=== PATIENT | male | born 1985 | race American Indian/Alaskan Native ===

== ENCOUNTER 2019-09-19 09:33 | Emergency (ER) | payer SELFPAY ==
[2019-09-19] MEDS ORDERED: KETOROLAC 30 MG/1 ML INJ IV ONE (11:41)
[2019-09-19] MEDS ORDERED: SODIUM CHLORIDE 0.9% 1000 ML 2,000 ML IV ONE (11:41)
[2019-09-19] MEDS ORDERED: ONDANSETRON 4 MG/2 ML INJ IV ONE (11:41)
[2019-09-19 11:44] LABS: Basophils # (Auto) 0.1 K/mm3 (0.0-0.1); Basophils % (Auto) 0.8 % (0.0-1.8); Eosinophils # (Auto) 0.1 K/mm3 (0.0-0.4); Eosinophils % (Auto) 0.7 % (0.0-4.3); Hematocrit 54.8 % (35.5-45.6); Hemoglobin 17.9 gm/dl (11.8-15.2); Lymphocytes # (Auto) 3.8 K/mm3 (1.2-5.4); Lymphocytes % (Auto) 34.2 % (13.4-35.0); Mean Corpuscular HGB Conc 33 % (32-34); Mean Corpuscular Volume 82 fl (84-94); Monocytes # (Auto) 1.1 K/mm3 (0.0-0.8); Monocytes % (Auto) 10.4 % (0.0-7.3); Platelet Count 414 K/mm3 (140-440); Red Blood Count 6.65 M/mm3 (3.65-5.03); Red Cell Distribution Width 14.2 % (13.2-15.2)
--- NOTE | 2019-09-19 11:50 | Emergency Department Report ---
- General Chief Complaint: Upper Respiratory Infection Stated Complaint: BLOOD IN URINE Time Seen by Provider: 09/19/19 11:33 Source: patient Mode of arrival: Ambulatory Limitations: No Limitations - History of Present Illness Initial Comments: This 34-year-old male presents to [facility] prompt chief complaint of generalized body aches, fever, chills, malaise, cough, dizziness and dark colored urine for the past 3 days. Patient reports his aches are a 8 out of 10 in severity. He denies any known past medical history, current medication use or known allergies to medications. Medications are up to date but he did not get a flu shot this year. Reports his pain is aggravated with movement and there are no alleviating factors. He is unsure of any sick contacts. - Related Data Previous Rx's Medication Instructions Recorded Last Taken Type Ibuprofen [Motrin 800 MG tab] 800 mg PO Q8HR PRN #30 tablet 09/19/19 Unknown Rx Ondansetron [Zofran Odt] 4 mg PO Q8HR PRN #30 tab.rapdis 09/19/19 Unknown Rx Allergies Allergy/AdvReac Type Severity Reaction Status Date / Time No Known Allergies Allergy Unverified 09/19/19 09:34 ED Review of Systems ROS: Stated complaint: BLOOD IN URINE Other details as noted in HPI Comment: All other systems reviewed and negative Constitutional: see HPI, chills, fever, malaise Eyes: denies: eye pain, eye discharge, vision change ENT: denies: ear pain, throat pain Respiratory: see HPI, cough. denies: shortness of breath, wheezing Cardiovascular: denies: chest pain, palpitations Endocrine: no symptoms reported Gastrointestinal: denies: abdominal pain, nausea, diarrhea Genitourinary: denies: urgency, dysuria Musculoskeletal: as per HPI, myalgia. denies: back pain, joint swelling, arthralgia Skin: denies: rash, lesions Neurological: denies: headache, weakness, paresthesias Psychiatric: denies: anxiety, depression Hematological/Lymphatic: denies: easy bleeding, easy bruising ED Past Medical Hx - Past Medical History Previous Medical History?: No - Surgical History Past Surgical History?: No - Social History Smoking Status: Current Every Day Smoker Substance Use Type: None - Medications Home Medications: Home Medications Medication Instructions Recorded Confirmed Last Taken Type Ibuprofen [Motrin 800 MG tab] 800 mg PO Q8HR PRN #30 tablet 09/19/19 Unknown Rx Ondansetron [Zofran Odt] 4 mg PO Q8HR PRN #30 tab.rapdis 09/19/19 Unknown Rx ED Physical Exam - General Limitations: No Limitations General appearance: alert, in no apparent distress - Head Head exam: Present: atraumatic, normocephalic - Eye Eye exam: Present: normal appearance, PERRL, EOMI Pupils: Present: normal accommodation - ENT ENT exam: Present: normal exam, normal orophraynx, mucous membranes moist, TM's normal bilaterally - Neck Neck exam: Present: normal inspection, full ROM. Absent: tenderness, meningismus - Respiratory Respiratory exam: Present: normal lung sounds bilaterally. Absent: respiratory distress, wheezes, rales, rhonchi, stridor - Cardiovascular Cardiovascular Exam: Present: regular rate, normal rhythm, normal heart sounds. Absent: systolic murmur, diastolic murmur, rubs, gallop - GI/Abdominal GI/Abdominal exam: Present: soft, normal bowel sounds. Absent: distended, tenderness, guarding, rebound, rigid - Rectal Rectal exam: Present: deferred - Extremities Exam Extremities exam: Present: normal inspection, full ROM, normal capillary refill. Absent: tenderness, calf tenderness (negative Homans sign bilaterally) - Back Exam Back exam: Present: normal inspection, full ROM. Absent: tenderness, CVA tenderness (R), CVA tenderness (L) - Neurological Exam Neurological exam: Present: alert, oriented X3, normal gait - Psychiatric Psychiatric exam: Present: normal affect, normal mood - Skin Skin exam: Present: warm, dry, intact, normal color. Absent: rash ED Course Vital Signs 09/19/19 09/19/19 09/19/19 09:37 10:53 12:04 Temperature 98.1 F Pulse Rate 131 H 149 H Respiratory 18 18 Rate Blood Pressure 139/93 Blood Pressure 135/112 [Left] O2 Sat by Pulse 98 98 Oximetry 09/19/19 09/19/19 09/19/19 13:09 13:36 13:46 Temperature Pulse Rate 99 H 93 H Respiratory 19 30 H 28 H Rate Blood Pressure 116/81 Blood Pressure [Left] O2 Sat by Pulse Oximetry 09/19/19 09/19/19 09/19/19 14:00 14:16 14:30 Temperature Pulse Rate 100 H 99 H 104 H Respiratory 14 20 24 Rate Blood Pressure 123/74 139/82 132/94 Blood Pressure [Left] O2 Sat by Pulse Oximetry 09/19/19 09/19/19 09/19/19 14:46 15:24 15:30 Temperature Pulse Rate 96 H 87 85 Respiratory 18 25 H 20 Rate Blood Pressure 138/84 146/86 146/92 Blood Pressure [Left] O2 Sat by Pulse Oximetry 09/19/19 09/19/19 15:45 16:00 Temperature Pulse Rate 86 89 Respiratory 15 22 Rate Blood Pressure 133/85 121/85 Blood Pressure [Left] O2 Sat by Pulse Oximetry ED Medical Decision Making - Lab Data Result diagrams: 09/19/19 11:17 09/19/19 13:02 Lab Results 09/19/19 09/19/19 09/19/19 Range/Units 10:29 11:17 11:17 WBC 11.0 (4.5-11.0) K/mm3 RBC 6.65 H (3.65-5.03) M/mm3 Hgb 17.9 H (11.8-15.2) gm/dl Hct 54.8 H (35.5-45.6) % MCV 82 L (84-94) fl MCH 27 L (28-32) pg MCHC 33 (32-34) % RDW 14.2 (13.2-15.2) % Plt Count 414 (140-440) K/mm3 Lymph % (Auto) 34.2 (13.4-35.0) % [place] % (Auto) 10.4 H (0.0-7.3) % Eos % (Auto) 0.7 (0.0-4.3) % Baso % (Auto) 0.8 (0.0-1.8) % Lymph # 3.8 (1.2-5.4) K/mm3 [place] # 1.1 H (0.0-0.8) K/mm3 Eos # 0.1 (0.0-0.4) K/mm3 Baso # 0.1 (0.0-0.1) K/mm3 Seg Neutrophils % 53.9 (40.0-70.0) % Seg Neutrophils # 5.9 (1.8-7.7) K/mm3 ABG pH (7.350-7.450) pH Units ABG pCO2 mm Hg ABG pO2 (80.0-90.0) mm Hg ABG HCO3 (20.0-26.0) mmol/L ABG O2 Saturation (95.0-99.0) % ABG O2 Content (0.0-44) ABG Base Excess (-2.0-3.0) mmol/L ABG Hemoglobin (14.0-18.0) gm/dl ABG Carboxyhemoglobin (0.0-5.0) % ABG Methemoglobin (0.0-1.5) % Oxyhemoglobin (95.0-99.0) % FiO2 % Sodium 132 L (137-145) mmol/L Potassium 6.5 H* (3.6-5.0) mmol/L Chloride 90.8 L (98-107) mmol/L Carbon Dioxide 19 L (22-30) mmol/L Anion Gap 29 mmol/L BUN 17 (9-20) mg/dL Creatinine 1.5 (0.8-1.5) mg/dL Estimated GFR 54 ml/min BUN/Creatinine Ratio 11 % Glucose 111 H (75-100) mg/dL Calcium 10.0 (8.4-10.2) mg/dL Total Bilirubin 0.90 (0.1-1.2) mg/dL AST 1712 H (5-40) units/L ALT 202 H (7-56) units/L Alkaline Phosphatase 100 (35-129) units/L Total Creatine Kinase Total Protein 8.8 H (6.3-8.2) g/dL Albumin 3.8 L (3.9-5) g/dL Albumin/Globulin Ratio 0.8 % Lipase (13-60) units/L Urine Color [place] (Yellow) Urine Turbidity Clear (Clear) Urine pH 6.0 (5.0-7.0) Ur Specific [place] 1.020 (1.003-1.030) Urine Protein 100 mg/dl (Negative) mg/dL Urine Glucose (UA) Neg (Negative) mg/dL Urine Ketones Neg (Negative) mg/dL Urine Blood Lg (Negative) Urine Nitrite Neg (Negative) Urine Bilirubin Neg (Negative) Urine Urobilinogen < 2.0 (<2.0) mg/dL Ur Leukocyte Esterase Neg (Negative) Urine WBC (Auto) 4.0 (0.0-6.0) /HPF Urine RBC (Auto) 8.0 (0.0-6.0) /HPF U Epithel Cells (Auto) 2.0 (0-13.0) /HPF Urine Bacteria (Auto) 1+ (Negative) /HPF Urine Mucus Few /HPF Influenza A (Rapid) (Negative) Influenza B (Rapid) (Negative) 09/19/19 09/19/19 09/19/19 Range/Units 11:17 11:44 13:02 WBC (4.5-11.0) K/mm3 RBC (3.65-5.03) M/mm3 Hgb (11.8-15.2) gm/dl Hct (35.5-45.6) % MCV (84-94) fl MCH (28-32) pg MCHC (32-34) % RDW (13.2-15.2) % Plt Count (140-440) K/mm3 Lymph % (Auto) (13.4-35.0) % [place] % (Auto) (0.0-7.3) % Eos % (Auto) (0.0-4.3) % Baso % (Auto) (0.0-1.8) % Lymph # (1.2-5.4) K/mm3 [place] # (0.0-0.8) K/mm3 Eos # (0.0-0.4) K/mm3 Baso # (0.0-0.1) K/mm3 Seg Neutrophils % (40.0-70.0) % Seg Neutrophils # (1.8-7.7) K/mm3 ABG pH (7.350-7.450) pH Units ABG pCO2 mm Hg ABG pO2 (80.0-90.0) mm Hg ABG HCO3 (20.0-26.0) mmol/L ABG O2 Saturation (95.0-99.0) % ABG O2 Content (0.0-44) ABG Base Excess (-2.0-3.0) mmol/L ABG Hemoglobin (14.0-18.0) gm/dl ABG Carboxyhemoglobin (0.0-5.0) % ABG Methemoglobin (0.0-1.5) % Oxyhemoglobin (95.0-99.0) % FiO2 % Sodium 135 L (137-145) mmol/L Potassium 5.5 H (3.6-5.0) mmol/L Chloride 98.0 (98-107) mmol/L Carbon Dioxide 19 L (22-30) mmol/L Anion Gap 24 mmol/L BUN 18 (9-20) mg/dL Creatinine 1.3 (0.8-1.5) mg/dL Estimated GFR > 60 ml/min BUN/Creatinine Ratio 14 % Glucose 91 (75-100) mg/dL Calcium 8.9 (8.4-10.2) mg/dL Total Bilirubin 0.70 (0.1-1.2) mg/dL AST 1407 H (5-40) units/L ALT 168 H (7-56) units/L Alkaline Phosphatase 83 (35-129) units/L Total Creatine Kinase TNR Total Protein 7.5 (6.3-8.2) g/dL Albumin 3.3 L (3.9-5) g/dL Albumin/Globulin Ratio 0.8 % Lipase (13-60) units/L Urine Color (Yellow) Urine Turbidity (Clear) Urine pH (5.0-7.0) Ur Specific [place] (1.003-1.030) Urine Protein (Negative) mg/dL Urine Glucose (UA) (Negative) mg/dL Urine Ketones (Negative) mg/dL Urine Blood (Negative) Urine Nitrite (Negative) Urine Bilirubin (Negative) Urine Urobilinogen (<2.0) mg/dL Ur Leukocyte Esterase (Negative) Urine WBC (Auto) (0.0-6.0) /HPF Urine RBC (Auto) (0.0-6.0) /HPF U Epithel Cells (Auto) (0-13.0) /HPF Urine Bacteria (Auto) (Negative) /HPF Urine Mucus /HPF Influenza A (Rapid) Negative (Negative) Influenza B (Rapid) Negative (Negative) 09/19/19 09/19/19 09/19/19 Range/Units 13:15 15:24 16:00 WBC (4.5-11.0) K/mm3 RBC (3.65-5.03) M/mm3 Hgb (11.8-15.2) gm/dl Hct (35.5-45.6) % MCV (84-94) fl MCH (28-32) pg MCHC (32-34) % RDW (13.2-15.2) % Plt Count (140-440) K/mm3 Lymph % (Auto) (13.4-35.0) % [place] % (Auto) (0.0-7.3) % Eos % (Auto) (0.0-4.3) % Baso % (Auto) (0.0-1.8) % Lymph # (1.2-5.4) K/mm3 [place] # (0.0-0.8) K/mm3 Eos # (0.0-0.4) K/mm3 Baso # (0.0-0.1) K/mm3 Seg Neutrophils % (40.0-70.0) % Seg Neutrophils # (1.8-7.7) K/mm3 ABG pH 7.491 H (7.350-7.450) pH Units ABG pCO2 26.0 mm Hg ABG pO2 86.8 (80.0-90.0) mm Hg ABG HCO3 19.4 L (20.0-26.0) mmol/L ABG O2 Saturation 97.2 (95.0-99.0) % ABG O2 Content 22.5 (0.0-44) ABG Base Excess -1.9 (-2.0-3.0) mmol/L ABG Hemoglobin 16.7 (14.0-18.0) gm/dl ABG Carboxyhemoglobin 1.1 (0.0-5.0) % ABG Methemoglobin 0.5 (0.0-1.5) % Oxyhemoglobin 95.6 (95.0-99.0) % FiO2 21 % Sodium (137-145) mmol/L Potassium (3.6-5.0) mmol/L Chloride (98-107) mmol/L Carbon Dioxide (22-30) mmol/L Anion Gap mmol/L BUN (9-20) mg/dL Creatinine (0.8-1.5) mg/dL Estimated GFR ml/min BUN/Creatinine Ratio % Glucose (75-100) mg/dL Calcium (8.4-10.2) mg/dL Total Bilirubin (0.1-1.2) mg/dL AST (5-40) units/L ALT (7-56) units/L Alkaline Phosphatase (35-129) units/L Total Creatine Kinase 191 H Total Protein (6.3-8.2) g/dL Albumin (3.9-5) g/dL Albumin/Globulin Ratio % Lipase 47 (13-60) units/L Urine Color (Yellow) Urine Turbidity (Clear) Urine pH (5.0-7.0) Ur Specific [place] (1.003-1.030) Urine Protein (Negative) mg/dL Urine Glucose (UA) (Negative) mg/dL Urine Ketones (Negative) mg/dL Urine Blood (Negative) Urine Nitrite (Negative) Urine Bilirubin (Negative) Urine Urobilinogen (<2.0) mg/dL Ur Leukocyte Esterase (Negative) Urine WBC (Auto) (0.0-6.0) /HPF Urine RBC (Auto) (0.0-6.0) /HPF U Epithel Cells (Auto) (0-13.0) /HPF Urine Bacteria (Auto) (Negative) /HPF Urine Mucus /HPF Influenza A (Rapid) (Negative) Influenza B (Rapid) (Negative) - EKG Data -: EKG Interpreted by Ok EKG shows normal: sinus rhythm Rate: tachycardia - EKG Data When compared to previous EKG there are: previous EKG unavailable Interpretation: other (no acute ST or T-wave abnormality, no STEMI, normal axis and intervals.) - Radiology Data Radiology results: report reviewed Cat Scan Report Signed Patient: MANDEEP MCGREGOR MR#: [id number] : 1985 Acct:[id number] Age/Sex: 34 / M ADM Date: 09/19/19 Loc: ED Attending Dr: Ordering Physician: OLIVE DE Date of Service: 09/19/19 Procedure(s): CT abdomen pelvis w con Accession Number(s): [id number] cc: OLIVE DE CT abdomen pelvis w con INDICATION: elevated LFT. TECHNIQUE: All CT scans at this location are performed using the following dose modulation technique: Automated exposure control. Helical slices were obtained through the abdomen and pelvis. 100 cc of Omnipaque 300 is administered. COMPARISON: None available. FINDINGS: Abdomen: The lung bases are clear. The liver, spleen, pancreas, adrenal glands, and kidneys show no acute abnormality. The gallbladder is grossly unremarkable. There is no biliary dilatation. The bowel is grossly unremarkable. The appendix is normal in appearance. There is no obstruction, inflammation, or free air. Pelvis: There is no obstruction or inflammation. There are no abnormal fluid collections. There is no inflammatory change. On review of bone windows, no acute osseous abnormalities are seen. IMPRESSION: 1. There is no obstruction, inflammation, or free air. There are no abnormal collections. There is no biliary dilatation. No acute abnormality is seen in the abdomen and pelvis. Signer Name: Chaparro Blackmon MD Signed: 09/19/2019 5:09 PM Workstation Name: [id number] Transcribed By: Dictated By: Chaparro Blackmon MD Electronically Authenticated By: Chaparro Blackmon MD Signed Date/Time: 09/19/19 2972 - Medical Decision Making Patient presented immersed department tachycardic with generalized myalgias and flulike symptoms. He also reported dark urine. Labs were ordered and showed metabolic acidosis with marked elevation in his liver transaminases. Patient was given 3 L of normal saline IV and said he was able tolerate by mouth food and fluid and felt much better. He did admit that he had been drinking heavily the week before andis an issue that needs to stop. Does not want any help to stop drinking. We offered admission and I discussed with hospitalist Dr. Ott who reviewed the labs and stated that there was not any indication for inpatient admission at this time and recommended outpatient follow-up. The patient was seen at the bedside by my attending Dr. Raygoza who stated since the patient has metabolic acidosis but is compensating on the ABG and since he is eating and drinking at the bedside and feels much better after the IV fluids and sent him home and he can see outpatient GI and primary care. Patient was educated to avoid any Tylenol containing substances as well as any alcohol. Patient was very agreeable to this plan and agreed to return to the emergency department with any change or worsening symptoms. He verbalizes understanding of the diagnosis, treatment plan and follow-up instructions in all of his questions were answered. - Differential Diagnosis alcoholic ketoacidosis, dehydration, rhabdomyolysis, influenza Critical care attestation.: If time is entered above; I have spent that time in minutes in the direct care of this critically ill patient, excluding procedure time. ED Disposition Clinical Impression: Alcoholic ketoacidosis, Acute alcoholic hepatitis, Hyperkalemia Disposition: DC-01 TO HOME OR SELFCARE Is pt being admited?: No Condition: Stable Instructions: Abuse of Alcohol (ED), Dehydration (ED) Prescriptions: Ibuprofen [Motrin 800 MG tab] 800 mg PO Q8HR PRN #30 tablet PRN Reason: Pain , Severe (7-10) Ondansetron [Zofran Odt] 4 mg PO Q8HR PRN #30 tab.rapdis PRN Reason: Nausea Referrals: [facility] [Provider Group] - 3-5 Days [facility] [Provider Group] - 3-5 Days Forms: Work/School Release Form(ED) Time of Disposition: 17:54
[2019-09-19 11:58] LABS: Bacteria,Urine 1+ /HPF (Negative); Bilirubin,Urine NEG (Negative); Blood,Urine LG (Negative); Color,Urine Amber (Yellow); Mucus,Urine FEW /HPF; Urobilinogen,Urine < 2.0 mg/dL (<2.0)
[2019-09-19 12:08] LABS: Albumin 3.8 g/dL (3.9-5)
[2019-09-19 14:20] LABS: Alanine Aminotransferase 168 units/L (7-56); Albumin 3.3 g/dL (3.9-5); BUN/Creatinine Ratio 14; Blood Urea Nitrogen 18 mg/dL (9-20); Calcium 8.9 mg/dL (8.4-10.2); Hemolysis Index 13
[2019-09-19] MEDS ORDERED: SODIUM CHLORIDE 0.9% 1000 ML 1,000 ML IV ONE (14:38)
[2019-09-19 16:10] LABS: ABG Base Excess -1.9 mmol/L (-2.0-3.0); ABG HCO3 19.4 mmol/L (20.0-26.0); ABG Methemoglobin 0.5 % (0.0-1.5); ABG Oxygen Saturation 97.2 % (95.0-99.0); ABG PH 7.491 pH Units (7.350-7.450); ABG PO2 86.8 mm Hg (80.0-90.0)
--- NOTE | 2019-09-19 17:13 | Cat Scan Report ---
CT abdomen pelvis w con INDICATION: elevated LFT. TECHNIQUE: All CT scans at this location are performed using the following dose modulation technique: Automated exposure control. Helical slices were obtained through the abdomen and pelvis. 100 cc of Omnipaque 30 0 is administered. COMPARISON: None available. FINDINGS: Abdomen: The lung bases are clear. The liver, spleen, pancreas, adrenal glands, and kidneys show no a cute abnormality. The gallbladder is grossly unremarkable. There is no biliary dilatation. The bowel is grossly unremarkable. The appendix is normal in appearance. There is no obstruction, inflammation, or free air. Pelvis: There is no obstruction or inflammation. There are no abnormal fluid collections. There is no inflammatory change. On review of bone windows, no acute osseous abnormalities are seen. IMPRESSION: 1. There is no obstruction, inflammation, or free air. There are no abnormal collections. There is no biliary dilatation. No acute abnormality is seen in the abdomen and pelvis. Signer Name: Chaparro Blackmon MD Signed: 09/19/2019 5:09 PM Workstation Name: [id number]
[2019-09-19 17:54] VITALS: BP 140/86
== END 2019-09-19 18:17 | disposition home or self-care (01) ==
LOC: ED 09:33
DX: E87.2 Acidosis (principal); K70.10 Alcoholic hepatitis without ascites; E87.5 Hyperkalemia; F17.200 Nicotine dependence, unspecified, uncomplicated
CPT/HCPCS: 36415; 74177; 80053; 81001; 82550; 82803; 83690; 85025; 87400; 93005; 93010; 96361; 96374; 96375; 99284; J1885; J2405; J7030; Q9967